=== PATIENT | female | born 1980 | race Caucasian/White ===

== ENCOUNTER → 2018-03-26 | Outpatient (CLI) | payer BC ==
[2015-03-15 13:02] VITALS: BP 132/68
[~2018-03-26] MED LIST: HYDR-3165 PO; OMEP40CA2 PO; SERT100T PO
--- NOTE | 2018-03-27 08:33 | RAD ---
EXAM: Cervical spine, 3 views. HISTORY: Fusion. COMPARISON: None. FINDINGS: 3 views of the cervical spine are obtained. There is instrumented anterior spinal fusion and interbody fusion at C5-C6. There is slight degenerative endplate remodeling anteriorly at C4-C5 and C6-C7. There is slight facet arthropathy at the mid lower cervical levels. IMPRESSION: 1. Instrumented fusion at C5-C6. 2. Mild degenerative change at C4-C5 and C6-C7. Electronically signed by: Natividad Tenorio MD (03/27/2018 8:30 AM) [id number]
== END | disposition home or self-care (01) ==
LOC: RAD 16:26
PROVIDERS: ATTEND Neurological Surgery
DX: M43.22 Fusion of spine, cervical region (principal); M47.812 Spondylosis without myelopathy or radiculopathy, cervical region; M12.88 Other specific arthropathies, not elsewhere classified, other specified site
CPT/HCPCS: 72040